=== PATIENT | female | born 1965 | race Caucasian/White ===

== ENCOUNTER 2017-12-15 02:37 | Emergency (ER) | payer MEDICAID ==
[~2017-12-15] VITALS: Ht 157.5 cm; Wt 75.0 kg
[~2017-12-15 02:37] MED LIST: CLIN300C85 PO
[2017-12-15 02:44] VITALS: BP 122/81
[2017-12-15] MEDS ORDERED: ketorolac trometh inj. 60 MG/2 ML VIAL IM ONE (03:20)
[2017-12-15] MEDS ORDERED: ipratropium/albuterol 3ml nebule NEB PRN (03:20)
== END 2017-12-15 04:06 | disposition home or self-care (01) ==
LOC: ER 02:37
DX: S29.011A Strain of muscle and tendon of front wall of thorax, initial encounter (principal); R06.2 Wheezing; F17.200 Nicotine dependence, unspecified, uncomplicated; Z88.1 Allergy status to other antibiotic agents; Z88.0 Allergy status to penicillin; Z79.899 Other long term (current) drug therapy; X58.XXXA Exposure to other specified factors, initial encounter; Y93.89 Activity, other specified; Y92.89 Other specified places as the place of occurrence of the external cause; Y99.8 Other external cause status
CPT/HCPCS: 71045; 93005; 94640; 94760; 96372; 99284; J1885

== ENCOUNTER 2018-02-23 05:40 | Emergency (ER) | payer MEDICAID ==
[~2018-02-23] VITALS: Ht 157.5 cm; Wt 78.2 kg
[2018-02-23 05:45] VITALS: BP 123/84
[2018-02-23 06:06] LABS: CLARITY,URINE CLOUDY (Clear); COLOR,URINE YELLOW (Yellow); GLUCOSE, URINE NEGATIVE (Neg); KETONES,URINE NEGATIVE (Neg); LEUKOCYTE ESTERASE ,URINE NEGATIVE (Neg); NITRITES, URINE POSITIVE (Neg); OCCULT BLOOD,URINE MODERATE (Neg); PROTEIN,URINE NEGATIVE (Neg); UROBILINOGEN,URINE 0.2 E.U/dL (0.2-1.0)
[2018-02-23 06:08] LABS: UA COLLECTION TYPE CLN CATCH MIDSTREAM
[2018-02-23 06:15] LABS: BACTERIA,URINE 4+ /HPF (Neg); MUCUS STRANDS FEW /LPF (Neg); SQUAMOUS EPITHELIAL CELL,UR MODERATE /LPF (FEW)
[2018-02-23] MEDS ORDERED: NITR100C6 PO (06:25)
== END 2018-02-23 06:38 | disposition home or self-care (01) ==
LOC: ER 05:41
DX: N39.0 Urinary tract infection, site not specified (principal); F17.200 Nicotine dependence, unspecified, uncomplicated; Z88.1 Allergy status to other antibiotic agents
CPT/HCPCS: 81001; 87077; 87088; 87186; 99284

== ENCOUNTER 2018-06-17 17:36 | Emergency (ER) | payer MEDICAID ==
[~2018-06-17] VITALS: Ht 157.5 cm; Wt 94.0 kg
[~2018-06-17 17:36] MED LIST changes: +NITR100C6 PO
[2018-06-17 17:54] VITALS: BP 120/67
--- NOTE | 2018-06-17 20:00 | NUR ---
NO RESPONSE FROM [facility] AFTER THREE ATTEMPTS TO ROOM. CALL PLACED TO NUMBER ON FILE, RECEIVED AUTOMATED MESSAGE THAT NUMBER IS TEMPORARILY UNAVAILABLE. DR. JURADO INFORMED.
== END 2018-06-17 22:29 | disposition left against medical advice (07) ==
LOC: ER 17:36
DX: K08.89 Other specified disorders of teeth and supporting structures (principal); Z53.21 Procedure and treatment not carried out due to patient leaving prior to being seen by health care provider

== ENCOUNTER 2019-01-25 18:29 | Emergency (ER) | payer MEDICAID ==
[~2019-01-25] VITALS: Ht 157.5 cm; Wt 86.0 kg
[~2019-01-25 18:29] MED LIST changes: +CLIN-96 PO; -CLIN300C85 PO
[2019-01-25 18:34] VITALS: BP 136/76
[2019-01-25] MEDS ORDERED: HYDR-4353 PO (19:40)
[2019-01-25] MEDS ORDERED: HYDROcodone/acetaminophen 10/325mg tab PO ONE (19:45)
== END 2019-01-25 19:51 | disposition home or self-care (01) ==
LOC: ER 18:29
DX: K04.7 Periapical abscess without sinus (principal); F17.200 Nicotine dependence, unspecified, uncomplicated; Z88.1 Allergy status to other antibiotic agents; Z88.0 Allergy status to penicillin
CPT/HCPCS: 99283

== ENCOUNTER 2020-07-22 19:56 | Emergency (ER) | payer MEDICAID ==
[~2020-07-22] VITALS: Ht 157.5 cm; Wt 90.9 kg
[~2020-07-22 19:56] MED LIST changes: -CLIN-96 PO; +CLIN-97 PO
[2020-07-22] MEDS ORDERED: ketorolac tromethamine 15mg/ml inj. IM ONE (20:40)
[2020-07-22] MEDS ORDERED: orphenadrine citrate 60mg/2ml inj. IM ONE (20:40)
[2020-07-22] MEDS ORDERED: ORPH100T2 PO (21:14)
[2020-07-22] MEDS ORDERED: IBUP-1984 PO (21:14)
[2020-07-22 21:23] VITALS: BP 112/83
== END 2020-07-22 21:33 | disposition home or self-care (01) ==
LOC: ER 19:57
DX: M54.6 Pain in thoracic spine (principal); M25.511 Pain in right shoulder; Z98.890 Other specified postprocedural states; Z88.1 Allergy status to other antibiotic agents; Z88.0 Allergy status to penicillin; Z79.899 Other long term (current) drug therapy
CPT/HCPCS: 71045; 96372; 99284; J1885; J2360